=== PATIENT | female | born 1980 | race Two or more races ===

== ENCOUNTER 2023-10-28 13:06 | Emergency (ER) | payer SELFPAY ==
[~2023-10-28] VITALS: Ht 167.6 cm; Wt 68.0 kg
[2023-10-28] MEDS ORDERED: IV NS 0.9% 500 ML BAG IV ONE (15:00)
[2023-10-28] MEDS ORDERED: FAMOTIDINE/PF INJ 20 MG/2 ML VIAL IV ONE (15:00)
[2023-10-28] MEDS ORDERED: diphenhydrAMINE HCL 50 MG/ML VIAL IV ONE (15:00)
[2023-10-28] MEDS ORDERED: diphenhydrAMINE HCL 25 MG CAPSULE ONE (15:14)
[2023-10-28] MEDS ORDERED: FAMOTIDINE (20 MG) 20 MG TABLET ONE (15:15)
[2023-10-28] MEDS: diphenhydrAMINE HCL ELIX 25 MG/10 ML UDC PO ONE (15:16)
[2023-10-28] MEDS: FAMOTIDINE (20 MG) 20 MG TABLET PO ONE (15:17)
[2023-10-28] MEDS ORDERED: DIPH25CA83 PO (15:29)
[2023-10-28] MEDS ORDERED: FAMO20TA80 PO (15:29)
[2023-10-28 15:47] VITALS: BP 120/73; TEMP 97.6; O2SAT 97
== END 2023-10-28 15:47 | disposition home or self-care (01) ==
LOC: ER 13:27
DX: S10.86XA Insect bite of other specified part of neck, initial encounter (principal); J45.909 Unspecified asthma, uncomplicated; H40.9 Unspecified glaucoma; Z60.2 Problems related to living alone; W57.XXXA Bitten or stung by nonvenomous insect and other nonvenomous arthropods, initial encounter; Y93.89 Activity, other specified; Y92.098 Other place in other non-institutional residence as the place of occurrence of the external cause; Y99.8 Other external cause status
CPT/HCPCS: 99283; Q0163